=== PATIENT | female | born 1980 | race African-American/Black ===

== ENCOUNTER 2017-10-15 19:00 | Emergency (ER) | payer MEDICAID ==
[2017-10-15] MEDS ORDERED: METHYLPREDNISOLONE INJ 125 MG/2 ML SDV IV ONE (20:01)
[2017-10-15] MEDS ORDERED: ONDANSETRON HCL INJ/PF 4 MG/2 ML SDV IV ONE (20:02)
[2017-10-15] MEDS ORDERED: CEFTRIAXONE 1 GM/D5W RTU 1 GM/50 ML RTUPB IV ONE (20:04)
--- NOTE | 2017-10-15 20:07 | ER Document Report ---
ED Medical Screen (RME) - General Chief Complaint: Congestion Stated Complaint: THROAT PAIN Time Seen by Provider: 10/15/17 20:00 Notes: Patient says she has painful swelling of the right neck, under the edge of the right jaw bone. The pain and swelling has been increasing over the last 3 days. She has right ear pain as well. She can swallow but it hurts to do so. Patient thinks her voice is different than normal for her. She vomited once yesterday. No diarrhea. Has not had any cough or chest congestion. Patient has a history of hypertension, but is out of medications. Denies diabetes. Smokes a half a pack of cigarettes a day. Patient's posterior oropharynx is erythematous with slight more enlargement on the right side than the left, although there is no shift in the uvula and I do not think this indicates an abscess present. Very tender likely lymph nodes in the right submandibular region near the angle of the right mandible. TRAVEL OUTSIDE OF THE [place] IN LAST 30 DAYS: No - Related Data Allergies/Adverse Reactions: No Known Allergies Allergy (Verified 10/15/17 19:01) Home Medications: Current Home Medications No Home Medications 10/15/17 [History] Past Medical History - Social History Chew tobacco use (# tins/day): No Frequency of alcohol use: Rare Drug Abuse: Marijuana - Past Medical History Cardiac Medical History: Reports: Hx Hypertension Renal/ Medical History: Denies: Hx Peritoneal Dialysis - Immunizations Hx Diphtheria, Pertussis, Tetanus Vaccination: Yes Physical Exam - Vital signs Vitals: Temp Pulse Resp BP Pulse Ox 99.5 F 95 16 174/103 H 97 10/15/17 19:11 10/15/17 19:11 10/15/17 19:11 10/15/17 19:11 10/15/17 19:11 Course - Vital Signs Vital signs: Temp Pulse Resp BP Pulse Ox 99.5 F 95 16 174/103 H 97 10/15/17 19:11 10/15/17 19:11 10/15/17 19:11 10/15/17 19:11 10/15/17 19:11
[2017-10-15] MEDS: NORMAL SALINE 1000 ML 1,000 ML IV PRN ×2 (20:15→20:18)
[2017-10-15 20:29] LABS: ABSOLUTE EOSINOPHILS # (AUTO) 0.2 10^3/uL (0.0-0.6); ABSOLUTE LYMPHOCYTES (AUTO) 1.8 10^3/uL (0.5-4.7); ABSOLUTE MONOCYTES (AUTO) 0.6 10^3/uL (0.1-1.4); ABSOLUTE NEUT (AUTO) 4.4 10^3/uL (1.7-8.2); BASOPHILS % (AUTO) 0.6 % (0-2); EOSINOPHILS % (AUTO) 3.2 % (0-6); HEMATOCRIT 40.8 % (36.0-47.0); HEMOGLOBIN 13.7 g/dL (12.0-15.5); HGB HCT DIFFERENCE 0.3; LYMPHOCYTES % (AUTO) 25.1 % (13-45); MEAN CORPUSCULAR HEMOGLOBIN 28.2 pg (27.0-33.4); MEAN CORPUSCULAR HGB CONC 33.6 g/dL (32.0-36.0); MEAN CORPUSCULAR VOLUME 84 fl (80-97); MONOCYTES % (AUTO) 8.2 % (3-13); RED BLOOD COUNT 4.85 10^6/uL (3.72-5.28); RED CELL DISTRIBUTION WIDTH 13.2 % (11.5-14.0); SEGMENTED NEUTROPHILS % (AUTO) 62.9 % (42-78); WHITE BLOOD COUNT 7.1 10^3/uL (4.0-10.5)
[2017-10-15] MEDS ORDERED: CLONIDINE HCL 0.2 MG TABLET PO ONE (20:49)
--- NOTE | 2017-10-15 20:53 | ER Document Report ---
ED General - General Chief Complaint: Congestion Stated Complaint: THROAT PAIN Time Seen by Provider: 10/15/17 20:00 Mode of Arrival: Ambulatory Information source: Patient Notes: 37 years old female presents today with sore throat right side of the neck pain for the last couple of days. With the increased lymph node on the right side. Denies any fever chills but had cough on and off and sore throat. Denies any headache dizziness neck pain neck stiffness. Denies any chest pain shortness of breath. Denies any abdominal pain nausea vomiting. She was seen by the primary care physician noted increased or other elevated blood pressure. And a temperature of 99.5. TRAVEL OUTSIDE OF THE [place] IN LAST 30 DAYS: No - Related Data Allergies/Adverse Reactions: No Known Allergies Allergy (Verified 10/15/17 19:01) Past Medical History - Social History Smoking Status: Current Every Day Smoker Chew tobacco use (# tins/day): No Frequency of alcohol use: Rare Drug Abuse: Marijuana Family History: Reviewed & Not Pertinent Patient has suicidal ideation: No Patient has homicidal ideation: No - Past Medical History Cardiac Medical History: Reports: Hx Hypertension Renal/ Medical History: Denies: Hx Peritoneal Dialysis - Immunizations Hx Diphtheria, Pertussis, Tetanus Vaccination: Yes Hx Pneumococcal Vaccination: 10/24/00 Review of Systems - Review of Systems Notes: REVIEW OF SYSTEMS: CONSTITUTIONAL : Denies recent illness. EENT: As per history of complain CARDIOVASCULAR: Denies chest pain. Denies palpitations or racing or irregular heart beat. Denies ankle edema. RESPIRATORY: Denies cough, cold, or chest congestion. Denies shortness of breath, difficulty breathing, or wheezing. GASTROINTESTINAL: Denies abdominal pain or distention. Denies nausea, vomiting , or diarrhea. Denies blood in vomitus, stools, or per rectum. Denies black, tarry stools. Denies constipation. GENITOURINARY: Denies difficulty urinating, painful urination, burning, frequency, blood in urine, or discharge. FEMALE GENITOURINARY: Denies vaginal bleeding, heavy or abnormal periods, irregular periods. Denies vaginal discharge or odor. MUSCULOSKELETAL: Denies back or neck pain or stiffness. Denies joint pain or swelling. SKIN: Denies rash, lesions or sores. HEMATOLOGIC : Denies easy bruising or bleeding. LYMPHATIC: Denies swollen, enlarged glands. NEUROLOGICAL: Denies confusion or altered mental status. Denies passing out or loss of consciousness. Denies dizziness or lightheadedness. Denies headache. Denies weakness or paralysis or loss of use of either side. Denies problems with gait or speech. Denies sensory loss, numbness, or tingling. Denies seizures. PSYCHIATRIC: Denies anxiety or stress. Denies depression, suicidal ideation, or homicidal ideation. ALL OTHER SYSTEMS REVIEWED AND NEGATIVE. PHYSICAL EXAMINATION: GENERAL: Well-appearing, well-nourished and in no acute distress. HEAD: Atraumatic, normocephalic. EYES: Pupils equal round and reactive to light, extraocular movements intact, conjunctiva are normal. ENT: Nares patent, oropharynx erythematous without exudates. Moist mucous membranes. NECK: Normal range of motion, supple right upper anterior cervical lymph nodes are enlarged and tender on palpation denopathy LUNGS: Breath sounds clear to auscultation bilaterally and equal. No wheezes rales or rhonchi. HEART: Regular rate and rhythm without murmurs ABDOMEN: Soft, nontender, nondistended abdomen. No guarding, no rebound. No masses appreciated. Female : deferred Musculoskeletal: Normal range of motion, no pitting or edema. No cyanosis. NEUROLOGICAL: Cranial nerves grossly intact. Normal speech, normal gait. Normal sensory, motor exams PSYCH: Normal mood, normal affect. SKIN: Warm, Dry, normal turgor, no rashes or lesions noted. Dictation was performed using iversity voice recognition software Physical Exam - Vital signs Vitals: Temp Pulse Resp BP Pulse Ox 99.5 F 95 16 174/103 H 97 10/15/17 19:11 10/15/17 19:11 10/15/17 19:11 10/15/17 19:11 10/15/17 19:11 Course - Re-evaluation Re-evalutation: 10/16/17 00:55 Patient feels comfortable has no difficulty in breathing at all no stridors. CT report was communicated to the patient. And asked to follow-up with the ENT - Vital Signs Vital signs: Temp Pulse Resp BP Pulse Ox 99.5 F 76 16 129/79 H 97 10/15/17 19:11 10/15/17 23:10 10/15/17 23:10 10/15/17 23:10 10/15/17 23:10 - Laboratory Result Diagrams: 10/15/17 20:07 10/15/17 20:07 Discharge - Discharge Clinical Impression: Tonsillar abscess, Tonsillitis Condition: Fair Disposition: HOME, SELF-CARE Instructions: Abscess ([facility]), Corticosteroid Medication ([facility]) Additional Instructions: If you develop any difficulty in breathing please return to the ED immediately. Take the prescribed option medication as directed. Prescriptions: Amox Tr/Potassium Clavulanate [Augmentin 875-125 Tablet] 1 tab PO BID 10 Days tablet Hydrocodone/Acetaminophen [[place] 5-325 mg Tablet] 1 tab PO TID PRN #10 tablet PRN Reason: Prednisone [Deltasone 20 mg Tablet] 1 tab PO DAILY 5 Days #7 tablet Referrals: RAISA PARTIDA MD [Primary Care Provider] - Follow up as needed
[2017-10-15 20:57] LABS: ALANINE AMINOTRANSFERASE 25 U/L (9-52); ALBUMIN 4.2 g/dL (3.5-5.0); ALKALINE PHOSPHATASE 59 U/L (38-126); ANION GAP 12 (5-19); ASPARTATE AMINO TRANSFERASE 24 U/L (14-36); BILIRUBIN,DIRECT 0.2 mg/dL (0.0-0.4); BILIRUBIN,TOTAL 0.4 mg/dL (0.2-1.3); BLOOD UREA NITROGEN 9 mg/dL (7-20); CALCIUM 10.1 mg/dL (8.4-10.2); CARBON DIOXIDE 28 mmol/L (22-30); CHLORIDE 103 mmol/L (98-107); CREATININE RESULT 0.71 mg/dL (0.52-1.25); GLUCOSE 78 mg/dL (75-110); POTASSIUM 4.2 mmol/L (3.6-5.0); SODIUM 142.8 mmol/L (137-145); TOTAL PROTEIN 7.5 g/dL (6.3-8.2)
--- NOTE | 2017-10-15 21:23 | RADIOLOGY REPORT (SQ) ---
EXAM DESCRIPTION: CT SOFT TISSUE NECK WITH COMPLETED DATE/TIME: 10/15/2017 9:02 pm REASON FOR STUDY: Sore throat, fever, right submandibular swelling COMPARISON: None. TECHNIQUE: Post IV contrasted scanning from skull base through lung apices with review of bone, soft tissue and lung windows. Reconstructed coronal and sagittal MPR images reviewed. All images stored on PACS. All CT scanners at this facility use dose modulation, iterative reconstruction, and/or weight based d osing when appropriate to reduce radiation dose to as low as reasonably achievable (ALARA). [facility]: Dose Right [facility]: CareDose [facility]: Dose Right [facility]: Teradose 4D [facility]: Tailster CONTRAST TYPE AND DOSE: contrast/concentration: Isovue 370.00 mg/ml; Total Contrast Delivered: 75.0 ml; Total Saline Delivered: 55.1 ml RENAL FUNCTION: None required. The patient is less than 50 years old. RADIATION DOSE: CT Rad equipment meets quality standard of care and radiation dose reduction techniq ues were employed. CTDIvol: 17.5 mGy. DLP: 570 mGy-cm. . LIMITATIONS: None. FINDINGS: SKULL BASE: Intact. MAJOR SALIVARY GLANDS: No solid or cystic masses. No inflammatory changes. LYMPHADENOPATHY: Mildly enlarged jugulodigastric and anterior cervical chain nodes which are fairly s ymmetric. MUCOSAL MASSES OR ASYMMETRY: Enlarged palatine tonsillar tissue with marked narrowing of the posterio r nasopharynx. Low attenuation along the inferior right tonsillar border. LARYNX/CORDS: No abnormal findings. VASCULAR STRUCTURES: The major vessels are patent. LUNG APICES: Clear. BONES: Intact. THYROID: Normal size. No masses. PARANASAL SINUSES: Clear. OTHER: No other significant finding. IMPRESSION: Peritonsillar phlegmon/ developing abscess with significant narrowing of the posterior n asopharynx. TECHNICAL DOCUMENTATION: JOB ID: [id number] Quality ID # [id number]: Final reports with documentation of one or more dose reduction techniques (e.g., Au tomated exposure control, adjustment of the mA and/or kV according to patient size, use of iterative reconstruction technique) 2010 [employer]- All Rights Reserved
[2017-10-16 01:30] VITALS: BP 132/78
== END 2017-10-16 01:30 | disposition home or self-care (01) ==
LOC: ER 19:00
DX: J36 Peritonsillar abscess (principal); R05 Cough; I10 Essential (primary) hypertension; F17.200 Nicotine dependence, unspecified, uncomplicated
CPT/HCPCS: 99284; 96361; 96374; 96375; 36415; 87070; 87880; 85025; 86308; 80053; 70491; J3490; J2930; J2405; J7030; J0696

== ENCOUNTER 2019-11-19 17:03 | Emergency (ER) | payer MEDICAID ==
--- NOTE | 2019-11-19 18:17 | ER Document Report ---
ED Medical Screen (RME) - General Chief Complaint: Abdominal Pain Stated Complaint: ABDOMINAL PAIN Time Seen by Provider: 11/19/19 18:12 Primary Care Provider: RAISA PARTIDA MD [Primary Care Provider] - Follow up as needed Mode of Arrival: Ambulatory Information source: Patient Notes: Otherwise healthy 31-year-old female presents the emergency department with 4-d ay history of right upper and left upper quadrant abdominal pain that radiates around in her sides. Patient denies any nausea, vomiting or diarrhea. She reports urinary frequency but denies dysuria. Denies any fevers. I have greeted and performed a rapid initial assessment of this patient. A comprehensive ED assessment and evaluation of the patient, analysis of test results and completion of the medical decision making process will be conducted by additional ED providers. I have specifically instructed the patient or family members with the patient to immediately return to any nursing staff should anything change in the patient's condition or with their chief complaint. TRAVEL OUTSIDE OF THE [place] IN LAST 30 DAYS: No - Related Data Allergies/Adverse Reactions: No Known Allergies Allergy (Verified 10/15/17 19:01) Past Medical History - Past Medical History Cardiac Medical History: Reports: Hx Hypertension Renal/ Medical History: Denies: Hx Peritoneal Dialysis - Immunizations Hx Diphtheria, Pertussis, Tetanus Vaccination: Yes Physical Exam - Vital signs Vitals: Temp Pulse Resp BP Pulse Ox 98.5 F 82 18 165/109 H 100 11/19/19 17:10 11/19/19 17:10 11/19/19 17:10 11/19/19 17:10 11/19/19 17:10 Course - Vital Signs Vital signs: Temp Pulse Resp BP Pulse Ox 98.5 F 82 18 165/109 H 100 11/19/19 17:10 11/19/19 17:10 11/19/19 17:10 11/19/19 17:10 11/19/19 17:10 Doctor's Discharge - Discharge Referrals: RAISA PARTIDA MD [Primary Care Provider] - Follow up as needed
[2019-11-19] MEDS ORDERED: KETOROLAC TROMETHAMINE 60 MG/2 ML SDV IM ONE (18:20)
[2019-11-19 18:53] LABS: ABSOLUTE EOSINOPHILS # (AUTO) 0.2 10^3/uL (0.0-0.6); ABSOLUTE LYMPHOCYTES (AUTO) 1.9 10^3/uL (0.5-4.7); ABSOLUTE MONOCYTES (AUTO) 0.5 10^3/uL (0.1-1.4); ABSOLUTE NEUT (AUTO) 4.6 10^3/uL (1.7-8.2); BASOPHILS % (AUTO) 0.3 % (0-2); EOSINOPHILS % (AUTO) 2.7 % (0-6); HEMATOCRIT 37.2 % (36.0-47.0); HEMOGLOBIN 12.9 g/dL (12.0-15.5); LYMPHOCYTES % (AUTO) 26.1 % (13-45); MEAN CORPUSCULAR HEMOGLOBIN 29.5 pg (27.0-33.4); MEAN CORPUSCULAR HGB CONC 34.7 g/dL (32.0-36.0); MEAN CORPUSCULAR VOLUME 85 fl (80-97); PLATELET COUNT 328 10^3/uL (150-450); RED BLOOD COUNT 4.38 10^6/uL (3.72-5.28); RED CELL DISTRIBUTION WIDTH 13.3 % (11.5-14.0); SEGMENTED NEUTROPHILS % (AUTO) 63.9 % (42-78); TOTAL CELLS COUNTED % (AUTO) 100 %; WHITE BLOOD COUNT 7.3 10^3/uL (4.0-10.5)
[2019-11-19 19:11] LABS: ALBUMIN 3.9 g/dL (3.5-5.0); ALKALINE PHOSPHATASE 68 U/L (38-126); ANION GAP 9 (5-19); ASPARTATE AMINO TRANSFERASE 27 U/L (14-36); BILIRUBIN,DIRECT 0.3 mg/dL (0.0-0.4); BILIRUBIN,TOTAL 0.4 mg/dL (0.2-1.3); BLOOD UREA NITROGEN 10 mg/dL (7-20); CALCIUM 9.4 mg/dL (8.4-10.2); CARBON DIOXIDE 29 mmol/L (22-30); CHLORIDE 102 mmol/L (98-107); GLUCOSE 94 mg/dL (75-110); POTASSIUM 3.9 mmol/L (3.6-5.0); TOTAL PROTEIN 7.5 g/dL (6.3-8.2)
[2019-11-19 19:21] LABS: AMORPHOUS SEDIMENT,URINE TRACE /HPF; APPEARANCE,URINE SLIGHTLY-CLOUDY; BILIRUBIN,URINE NEGATIVE (NEGATIVE); COLOR,URINE YELLOW; GLUCOSE, URINE NEGATIVE (NEGATIVE); KETONES,URINE NEGATIVE (NEGATIVE); PROTEIN,URINE 30 mg/dL (NEGATIVE); URINE SPECIFIC GRAVITY 1.014; UROBILINOGEN,URINE NEGATIVE mg/dL (<2.0)
[2019-11-19] MEDS ORDERED: LIDOCAINE 1% INJ-PF (10 MG/ML) 30 ML SDV IM ONE (19:53)
[2019-11-19] MEDS ORDERED: HYDROCODONE/ACETAMINOPHEN 5-325 MG TABLET PO ONE (19:53)
[2019-11-19] MEDS ORDERED: CEFTRIAXONE INJ 1000 MG VIAL IM ONE (19:53)
--- NOTE | 2019-11-19 19:55 | ER Document Report ---
ED GI/ - General Chief Complaint: Abdominal Pain Stated Complaint: ABDOMINAL PAIN Time Seen by Provider: 11/19/19 18:12 Primary Care Provider: RAISA PARTIDA MD [Primary Care Provider] - Follow up in 3-5 days Mode of Arrival: Ambulatory TRAVEL OUTSIDE OF THE [place] IN LAST 30 DAYS: No - HPI Notes: 11/19/19 19:55 39-year-old female to the emergency department with complaints of low back pain, epigastric abdominal pain for the past 4 to 5 days. She also admits to urinary frequency, slight burning at the end of her stream, feeling like she has not completely voided. She denies any blood in her urine. She denies any fevers but endorses chills. She denies any nausea or vomiting. She has never had a kidney infection. She denies any vaginal discharge. She is concerned for possible . She denies any vaginal bleeding. - Related Data Allergies/Adverse Reactions: No Known Allergies Allergy (Verified 10/15/17 19:01) Past Medical History - General Information source: Patient - Social History Smoking Status: Never Smoker Frequency of alcohol use: None Drug Abuse: None Lives with: Spouse/Significant other Family History: Reviewed & Not Pertinent Patient has suicidal ideation: No Patient has homicidal ideation: No - Past Medical History Cardiac Medical History: Reports: Hx Hypertension Renal/ Medical History: Denies: Hx Peritoneal Dialysis - Immunizations Hx Diphtheria, Pertussis, Tetanus Vaccination: Yes Hx Pneumococcal Vaccination: 10/24/00 Review of Systems - Review of Systems Constitutional: Chills. denies: Fever EENT: No symptoms reported Cardiovascular: denies: Chest pain, Palpitations, Dyspnea, Syncope, Dizziness, Lightheaded Respiratory: denies: Cough, Short of breath Gastrointestinal: Abdominal pain. denies: Diarrhea, Nausea, Vomiting Genitourinary: See HPI, Dysuria, Frequency. denies: Hematuria Musculoskeletal: Back pain Skin: No symptoms reported Neurological/Psychological: No symptoms reported -: Yes All other systems reviewed and negative Physical Exam - Vital signs Vitals: Temp Pulse Resp BP Pulse Ox 98.5 F 82 18 165/109 H 100 11/19/19 17:10 11/19/19 17:10 11/19/19 17:10 11/19/19 17:10 11/19/19 17:10 Interpretation: Hypertensive - General General appearance: Appears well, Alert In distress: None - HEENT Head: Normocephalic, Atraumatic Eyes: Normal Pupils: PERRL - Respiratory Respiratory status: No respiratory distress Chest status: Nontender. No: Accessory muscle use Breath sounds: Normal. No: Rales, Rhonchi, Stridor, Wheezing Chest palpation: Normal - Cardiovascular Rhythm: Regular Heart sounds: Normal auscultation Murmur: No - Abdominal Inspection: Morbidly Obese Distension: No distension Bowel sounds: Normal Tenderness: Tender - Mild tenderness to palpation in the epigastrium and in the suprapubic abdomen. Negative McBurney's point. Negative Fabian sign. No guarding or rebound. Organomegaly: No organomegaly - Back Back: Normal. No: CVA tenderness - There is no CVA tenderness to bilateral flank, however there is mild tenderness to palpation over the right lower back. No midline tenderness and no step-off or deformity. Patient ambulates with ease - Extremities General upper extremity: Normal inspection, Nontender, Normal color, Normal ROM, Normal temperature General lower extremity: Normal inspection, Nontender, Normal color, Normal ROM, Normal temperature, Normal weight bearing - Neurological Neuro grossly intact: Yes Cognition: Normal Orientation: AAOx4 [place] Coma Scale Eye Opening: Spontaneous Shanda Coma Scale Verbal: Oriented Shanda Coma Scale Motor: Obeys Commands [place] Coma Scale Total: 15 Speech: Normal Cranial nerves: Normal Cerebellar coordination: Normal Motor strength normal: LUE, RUE, LLE, RLE 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 No: Pronator drift Sensory: Normal - Psychological Associated symptoms: Normal affect, Normal mood - Skin Skin Temperature: Warm Skin Moisture: Dry Skin Color: Normal Course - Re-evaluation Re-evalutation: 11/19/19 20:02 Impression: Urinary tract infection, suprapubic abdominal pain, epigastric pain. No CVA tenderness so doubt pyelonephritis. However we will go ahead and treat with a gram of Rocephin here and discharged with Levaquin. Patient would prefer Rocephin in IM shot form. She states that she will need Diflucan to prevent yeast infection after she takes antibiotics. We will have her follow-up with primary care physician. Return if worse. - Vital Signs Vital signs: Temp Pulse Resp BP Pulse Ox 98.5 F 82 18 165/109 H 100 11/19/19 17:10 11/19/19 17:10 11/19/19 17:10 11/19/19 17:10 11/19/19 17:10 - Laboratory Result Diagrams: 11/19/19 18:13 11/19/19 18:13 Laboratory results interpreted by me: 11/19/19 18:13 Urine Protein 30 H Leukocyte Esterase Rfl LARGE H Discharge - Discharge Clinical Impression: Epigastric pain, Suprapubic pain, acute, Elevated blood pressure reading, Negative test UTI (urinary tract infection) Qualifiers: Urinary tract infection type: acute cystitis Hematuria presence: without hematuria Qualified Code(s): N30.00 - Acute cystitis without hematuria Low back pain Qualifiers: Chronicity: acute Back pain laterality: right Sciatica presence: without sciatica Qualified Code(s): M54.5 - Low back pain Condition: Stable Disposition: HOME, SELF-CARE Instructions: Abdominal Pain ([facility]), Oral Narcotic Medication ([facility]), Urinary Tract Infection ([facility]) Additional Instructions: Complete all antibiotics. Take medicines as prescribed. Eat yogurt while taking antibiotics to promote good gut health. Take Diflucan at the end of antibiotics to help prevent vaginal yeast infection. Return if worsening symptoms such as intractable nausea and vomiting, worsening pain, passing out, chest pain, shortness of breath or any other concerning symptoms. Follow-up with primary care. Prescriptions: Fluconazole [Diflucan] 150 mg PO ONCE PRN #3 tablet PRN Reason: Levofloxacin [Levaquin 500 mg Tablet] 500 mg PO DAILY #7 tablet Hydrocodone/Acetaminophen [[place] 5-325 mg Tablet] 1 tab PO Q6H #6 tablet Forms: Return to Work Referrals: RAISA PARTIDA MD [Primary Care Provider] - Follow up in 3-5 days
[2019-11-19] MEDS ORDERED: KETOROLAC TROMETHAMINE 60 MG/2 ML SDV ONE (20:34)
[2019-11-19 21:11] VITALS: BP 148/84
== END 2019-11-19 21:08 | disposition home or self-care (01) ==
LOC: ER 17:03
DX: N30.00 Acute cystitis without hematuria (principal); M54.5 Low back pain; R10.13 Epigastric pain; R35.0 Frequency of micturition; E66.01 Morbid (severe) obesity due to excess calories; R03.0 Elevated blood-pressure reading, without diagnosis of hypertension; R10.2 Pelvic and perineal pain
CPT/HCPCS: 99284; 96372; 36415; 84703; 85025; 80053; 81001; J1885; J3490; J0696

== ENCOUNTER 2019-12-11 16:38 | Emergency (ER) | payer MEDICAID ==
--- NOTE | 2019-12-11 18:41 | ER Document Report ---
ED Medical Screen (RME) - General Chief Complaint: Sore Throat Stated Complaint: SORE THROAT, SWELLING, EAR PAIN Time Seen by Provider: 12/11/19 18:31 Primary Care Provider: RAISA PARTIDA MD [Primary Care Provider] - Follow up as needed Notes: Patient is a 39-year-old female who presents to the emergency department with a chief complaint of sore throat. Patient reports for about 5 days she has had a sore throat, muffled voice and left ear pain. Patient reports sweats and chills but has not taken a temperature at home. Denies sick contacts. Patient also reports intermittent vaginal spotting that is a light pink in color. Patient reports yesterday she noticed that she was "lactating." Out of her breast bilaterally. Patient reports she is not currently breast-feeding. Patient reports her last menstrual cycle was 2 weeks ago but she did have sexual intercourse at that time and could be . Patient reports 3 weeks ago she was diagnosed with a UTI and was treated with Levaquin. Patient reports that her urinary symptoms have improved. Patient denies vaginal discharge or bleeding at this time. TRAVEL OUTSIDE OF THE [place] IN LAST 30 DAYS: No - Related Data Allergies/Adverse Reactions: No Known Allergies Allergy (Verified 10/15/17 19:01) Home Medications: denies Past Medical History - Social History Chew tobacco use (# tins/day): No Frequency of alcohol use: None Drug Abuse: None - Past Medical History Cardiac Medical History: Reports: Hx Hypertension Renal/ Medical History: Denies: Hx Peritoneal Dialysis - Immunizations Hx Diphtheria, Pertussis, Tetanus Vaccination: Yes Physical Exam - Vital signs Vitals: Temp Pulse Resp BP Pulse Ox 99.4 F 113 H 20 158/107 H 99 12/11/19 16:56 12/11/19 16:56 12/11/19 16:56 12/11/19 16:56 12/11/19 16:56 Course - Re-evaluation Re-evalutation: 12/11/19 18:40 Patient has bilateral tonsillar hypertrophy +3, appears to be ulcer on the uvula. Uvula is midline. Patient has a muffled voice. Will obtain a urine hCG. Will initiate IV Toradol as well as IV Decadron. I have greeted and performed a rapid initial assessment of this patient. A comprehensive ED assessment and evaluation of the patient, analysis of test results and completion of the medical decision making process will be conducted by additional ED providers. - Vital Signs Vital signs: Temp Pulse Resp BP Pulse Ox 99.4 F 113 H 20 158/107 H 99 12/11/19 16:56 12/11/19 16:56 12/11/19 16:56 12/11/19 16:56 12/11/19 16:56 Doctor's Discharge - Discharge Referrals: RAISA PARTIDA MD [Primary Care Provider] - Follow up as needed
[2019-12-11 19:47] LABS: ABSOLUTE BASOPHILS # (AUTO) 0.1 10^3/uL (0.0-0.2); ABSOLUTE EOSINOPHILS # (AUTO) 0.3 10^3/uL (0.0-0.6); ABSOLUTE MONOCYTES (AUTO) 0.8 10^3/uL (0.1-1.4); BASOPHILS % (AUTO) 0.5 % (0-2); EOSINOPHILS % (AUTO) 2.6 % (0-6); HEMATOCRIT 41.6 % (36.0-47.0); HEMOGLOBIN 14.6 g/dL (12.0-15.5); LYMPHOCYTES % (AUTO) 19.6 % (13-45); MEAN CORPUSCULAR HEMOGLOBIN 29.3 pg (27.0-33.4); MEAN CORPUSCULAR HGB CONC 35.1 g/dL (32.0-36.0); MEAN CORPUSCULAR VOLUME 84 fl (80-97); MONOCYTES % (AUTO) 8.3 % (3-13); PLATELET COUNT 384 10^3/uL (150-450); RED BLOOD COUNT 4.98 10^6/uL (3.72-5.28); RED CELL DISTRIBUTION WIDTH 12.8 % (11.5-14.0); TOTAL CELLS COUNTED % (AUTO) 100 %; WHITE BLOOD COUNT 10.1 10^3/uL (4.0-10.5)
[2019-12-11 19:48] LABS: APPEARANCE,URINE SLIGHTLY-CLOUDY; BILIRUBIN,URINE NEGATIVE (NEGATIVE); COLOR,URINE AMBER; GLUCOSE, URINE NEGATIVE (NEGATIVE); KETONES,URINE TRACE mg/dL (NEGATIVE); LEUKOCYTE ESTERASE,URINE NEGATIVE (NEGATIVE); NITRITE,URINE NEGATIVE (NEGATIVE); PROTEIN,URINE 30 mg/dL (NEGATIVE); URINE SPECIFIC GRAVITY 1.036; UROBILINOGEN,URINE NEGATIVE mg/dL (<2.0)
[2019-12-11 20:03] LABS: A TYPE INFLUENZA AG NEGATIVE (NEGATIVE); ALBUMIN 4.2 g/dL (3.5-5.0); ALKALINE PHOSPHATASE 76 U/L (38-126); ANION GAP 10 (5-19); ASPARTATE AMINO TRANSFERASE 20 U/L (14-36); B INFLUENZA AG NEGATIVE (NEGATIVE); BILIRUBIN,DIRECT 0.3 mg/dL (0.0-0.4); BILIRUBIN,TOTAL 0.5 mg/dL (0.2-1.3); BLOOD UREA NITROGEN 10 mg/dL (7-20); CALCIUM 9.7 mg/dL (8.4-10.2); CARBON DIOXIDE 32 mmol/L (22-30); CHLORIDE 98 mmol/L (98-107); GLUCOSE 76 mg/dL (75-110); POTASSIUM 3.9 mmol/L (3.6-5.0); TOTAL PROTEIN 8.2 g/dL (6.3-8.2)
[2019-12-11] MEDS ORDERED: KETOROLAC TROMETHAMINE INJ/PF 30 MG/1 ML SDV IV ONE (20:37)
[2019-12-11] MEDS ORDERED: DEXAMETHASONE SOD PHOS INJ 10 MG/1 ML VIAL IV ONE (20:37)
[2019-12-11] MEDS ORDERED: DEXAMETHASONE SOD PHOS INJ 10 MG/1 ML VIAL IM ONE (20:49)
[2019-12-11] MEDS ORDERED: KETOROLAC TROMETHAMINE INJ/PF 30 MG/1 ML SDV IM ONE (20:50)
--- NOTE | 2019-12-11 20:55 | ER Document Report ---
ED General - General Chief Complaint: Sore Throat Stated Complaint: SORE THROAT, SWELLING, EAR PAIN Time Seen by Provider: 12/11/19 18:31 Primary Care Provider: RAISA PARTIDA MD [Primary Care Provider] - Follow up as needed Notes: 39-year-old female complaining of 5 days of sore throat and earache, complains of sweats and chills, denies checking her temperature. Denies nausea, vomiting, diarrhea. Complains of pain when swallowing but no difficulty swallowing. Denies any foreign body sensation. Does complain of some voice changes. Denies any cough. Patient additionally states that she has had some light pink vaginal spotting, states her last menstrual period was 11/21/2019. Patient wants to know if she may be . Patient also thinks she is because she has been "lactating." Patient states that she is never had any nipple discharge aside from when she has been , states that she thinks the discharge looked a little bit like breast milk. Denies any blood, denies any odor, denies any discoloration, states it was simply white. TRAVEL OUTSIDE OF THE [place] IN LAST 30 DAYS: No - Related Data Allergies/Adverse Reactions: No Known Allergies Allergy (Verified 10/15/17 19:01) Home Medications: denies Past Medical History - General Information source: Patient - Social History Smoking Status: Current Every Day Smoker Chew tobacco use (# tins/day): No Frequency of alcohol use: Social Drug Abuse: None Family History: Reviewed & Not Pertinent Patient has suicidal ideation: No Patient has homicidal ideation: No - Past Medical History Cardiac Medical History: Reports: Hx Hypertension Renal/ Medical History: Denies: Hx Peritoneal Dialysis - Immunizations Hx Diphtheria, Pertussis, Tetanus Vaccination: Yes Hx Pneumococcal Vaccination: 10/24/00 Review of Systems - Review of Systems Constitutional: See HPI, Chills, Diaphoresis EENT: See HPI, Throat pain. denies: Difficulty swallowing Cardiovascular: No symptoms reported Respiratory: No symptoms reported Gastrointestinal: No symptoms reported Female Genitourinary: See HPI, Vaginal bleeding, Other - Breast discharge. -: Yes All other systems reviewed and negative Physical Exam - Vital signs Vitals: Temp Pulse Resp BP Pulse Ox 99.4 F 113 H 20 158/107 H 99 12/11/19 16:56 12/11/19 16:56 12/11/19 16:56 12/11/19 16:56 12/11/19 16:56 Interpretation: Hypertensive, Tachycardic - Notes Notes: GENERAL: Alert, interacts well. No acute distress. HEAD: Normocephalic, atraumatic EYES: Pupils equal, round and reactive to light, extraocular movements intact. ENT: Oral mucosa moist, tongue midline. Tonsils enlarged, erythematous, no asymmetry. No exudate noted. NECK: Full range of motion, supple, trachea midline. LUNGS: Clear to auscultation bilaterally, no wheezes, rales or rhonchi, no respiratory distress. HEART: Regular rate and rhythm, no murmurs, gallops, rubs. ABDOMEN: Soft, nontender, nondistended, bowel sounds present in all 4 quadrants. EXTREMITIES: Moves all 4 extremities spontaneously, no cyanosis. NEUROLOGICAL: Alert and oriented x3, normal speech. PSYCH: Normal mood, normal affect. SKIN: Warm, Dry, normal turgor, no rashes or lesions noted. Course - Re-evaluation Re-evalutation: 12/11/19 20:53 CBC unremarkable, CMP unremarkable, quant and your hCG are negative, urinalysis shows trace ketones but no signs of remaining urinary tract infection, flu swabs are negative, strep test is positive. Discussed treatment options for strep pharyngitis, patient would prefer not to receive a shot of antibiotics, agrees to receive a shot of Decadron and Toradol for symptom relief. Patient will be discharged to home with penicillin by mouth. Discussed with patient that her last menstrual period was approximately 20 days ago, discussed that if she has not had a menstrual cycle by the she should check a urine test again as this could be implantation bleeding but h er test may be negative because she is so early. Discussed with patient that if she has any recurrence of the breast discharge and she is not she should see her primary care physician for a thorough breast exam and further investigation of why she is having nipple discharge. - Vital Signs Vital signs: Temp Pulse Resp BP Pulse Ox 99.4 F 113 H 20 158/107 H 99 12/11/19 16:56 12/11/19 16:56 12/11/19 16:56 12/11/19 16:56 12/11/19 16:56 - Laboratory Result Diagrams: 12/11/19 19:13 12/11/19 19:13 Laboratory results interpreted by me: 12/11/19 12/11/19 19:13 19:13 Carbon Dioxide 32 H Urine Protein 30 H Urine Ketones TRACE H Discharge - Discharge Clinical Impression: Streptococcal pharyngitis, Vaginal bleeding between periods, Nipple discharge in female Condition: Stable Disposition: HOME, SELF-CARE Additional Instructions: Strep Throat Your sore throat is due to the streptococcus germ (strep throat). Strep throat usually makes you feel quite ill with fever and aches, headache, swollen sore throat, and tender bumps under the angles of the jaw. Strep throat requires antibiotic treatment. Although the sore throat may go away by itself, complications such as rheumatic fever, kidney disease, or throat abscess can occur. We usually prescribe antibiotics by mouth. Be sure to take the medicine until it's gone. If you stop early, the strep may come back. If you are vomiting, are severely ill, or can't remember to take pills, we can give you an antibiotic shot. Take acetaminophen or ibuprofen for pain and fever. Sip frequent clear liquids, or use popsicles or ice chips. Anesthetic sprays or lozenges may help. Make sure the air in the room is not too dry. Avoid using decongestants or antihistamines. Call the doctor if there is no improvement in three days, or if you have difficulty breathing, increasing throat pain, high fever, rash, or frequent vomiting. Please use ibuprofen (Motrin or Advil) 600-800 mg every 8 hours as needed for pain or fever. You may also use acetaminophen (Tylenol) 1000 mg every 4-6 hours as needed for pain or fever. Please be aware that many medications contain acetaminophen, do not exceed a total of 1000 mg of acetaminophen every 6 hours. If you have not gotten your period by the please consider taking another test. If you are not and continue to have nipple discharge please see your primary care physician to discuss the nipple discharge and have further investigation including a thorough breast exam. Prescriptions: Penicillin V Potassium [Penicillin Vk 500 mg Tablet] 500 mg PO BID #20 tablet Referrals: RAISA PARTIDA MD [Primary Care Provider] - Follow up as needed
[2019-12-11 21:28] VITALS: BP 185/110
== END 2019-12-11 21:26 | disposition home or self-care (01) ==
LOC: ER 16:38
DX: J02.0 Streptococcal pharyngitis (principal); N93.8 Other specified abnormal uterine and vaginal bleeding; N64.52 Nipple discharge; F17.200 Nicotine dependence, unspecified, uncomplicated; I10 Essential (primary) hypertension
CPT/HCPCS: 36415; 87880; 84702; 85025; 81025; 80053; 81001; 87804; J1885; J1100; 96374; 96375; 99283